=== PATIENT | female | born 1975 | race African-American/Black ===

== ENCOUNTER 2017-10-05 17:15 | Emergency (ER) | payer BC, SELFPAY ==
[2017-10-05] MEDS ORDERED: methylPREDNISolone Sod Succ/PF 125 MG/2 ML VIAL ONE (18:53)
[2017-10-05] MEDS ORDERED: Acetaminophen/Codeine 30-300mg Tablet ONE ×2 (18:53→18:54)
[2017-10-05] MEDS ORDERED: Water For Inject, Bacteriostat 30 ML ONE (18:54)
== END 2017-10-05 19:52 | disposition home or self-care (01) ==
LOC: ERS 17:15
DX: M25.512 Pain in left shoulder (principal); F17.210 Nicotine dependence, cigarettes, uncomplicated
CPT/HCPCS: 96372; J2930

== ENCOUNTER 2023-05-14 10:18 | Emergency (ER) | payer SELFPAY ==
[2023-05-14 12:26] LABS: Bilirubin Negative (Negative); Blood, Urine 1+ (Negative); CAUTI Indications for Culture Pelvic or flank pain; Clarity Clear (Clear); Glucose, Urine (Dipstick) Normal (Negative); Ketone, Urine Negative (Negative); Leukocyte Negative Leu/uL (Negative); Nitrite Negative (Negative); Protein, Urine (Dipstick) Negative (Neg-Trace); RBC/HPF 0-3 HPF (0-3); Specific Gravity, Urine 1.013 (1.002-1.036); Urobilinogen Normal mg/dL (Less than 2)
[2023-05-14 12:29] LABS: Bacteria/HPF 1+ HPF (None Seen)
[2023-05-14 12:31] LABS: Urine Culture Reflex No No
[2023-05-14 12:34] LABS: #Eosinphils 0.1 thou/uL (0.0-0.7); #Monocytes 0.2 thou/uL (0.11-0.59); #Neutrophils 2.9 thou/uL (1.40-6.50); %Basophils 0.6 % (0.0-1.0); %Eosinophils 1.4 % (0.0-10.0); %Lymphocytes 36.7 % (21.0-51.0); %Monocytes 4.5 % (0.0-10.0); %Neutrophils 56.6 % (42.0-75.0); Hematocrit 42.4 % (36.0-47.0); Hemoglobin 13.6 g/dL (12.0-16.0); Mean Corpuscular HGB CONC 32.1 g/dL (32.0-36.0); Mean Corpuscular Hemoglobin 29.8 pg (27.0-31.0); Mean Corpuscular Volume 92.8 fl (78.0-98.0); Mean Platelet Volume 10.4 fL (7.4-10.4); Platelet Count 253 10x3/uL (130-400); RBC Distribution Width 13.6 % (11.5-14.5); Red Blood Cell (RBC) Count 4.57 mill/uL (4.20-5.40); White Blood Cell (WBC) Count 5.1 10x3/uL (4.8-10.8)
[2023-05-14 12:39] LABS: Pregnancy Test - Urine (BHCG) Negative (Negative)
[2023-05-14 12:40] LABS: Pregu Control Background? CLEAR/WHITE (CLR/WHITE); Pregu Control Bar Appear? YES (CONTROL BAR); Specific Gravity 1.013 (1.002-1.036)
[2023-05-14 12:58] LABS: ALT (SGPT) 10 U/L (8-55); AST (SGOT) 16 U/L (5-34); Albumin 4.3 g/dL (3.5-5.0); Alkaline Phosphatase 91 U/L (40-110); Anion Gap 13 mmol/L (10-20); BUN (Urea Nitrogen) 9 mg/dL (7.0-18.7); Bilirubin, Total 0.6 mg/dL (0.2-1.2); Calc. Creatinine Clearance 0 mL/min (70-130); Calcium 8.7 mg/dL (7.8-10.44); Carbon Dioxide 27 mmol/L (22-29); Chloride 106 mmol/L (98-107); Estimated GFR 77; Globulin 3.3 g/dL (2.4-3.5); Glucose 79 mg/dL (70-105); Lipase 25 U/L (8-78); Protein, Total 7.6 g/dL (6.0-8.3); Sodium 142 mmol/L (136-145)
== END 2023-05-14 13:19 | disposition home or self-care (01) ==
LOC: ERS 10:18
DX: K62.5 Hemorrhage of anus and rectum (principal); R11.2 Nausea with vomiting, unspecified; F17.290 Nicotine dependence, other tobacco product, uncomplicated
CPT/HCPCS: 80053; 81001; 81025; 83690; 85025; 94760; 99284